=== PATIENT | female | born 1975 | race Caucasian/White ===

== ENCOUNTER 2022-05-03 16:54 | Inpatient (IN) | payer MEDICAID ==
[2022-05-03] MEDS ORDERED: Sodium Chloride 0.9% 1,000 ML IV ONE (17:53)
[2022-05-03] MEDS ORDERED: Insulin Regular, Human 100 Units/ML 3 ML Vial IVPUSH ONE (17:54)
[2022-05-03 18:28] LABS: ESTIMATED GFR > 60 (>60)
[2022-05-03] MEDS ORDERED: Ondansetron 4 MG/2 ML SDV IVPUSH ONE (18:35)
[2022-05-03] MEDS ORDERED: fentaNYL 50 MCG/ML SDV IVPUSH ONE (18:36)
[2022-05-03] MEDS: Sodium Chloride 0.9% 1,000 ML IV SCH ×2 (19:24→22:46)
[2022-05-03] MEDS ORDERED: Ondansetron 4 MG/2 ML SDV IV PRN (20:24)
[2022-05-03] MEDS ORDERED: Acetaminophen/HYDROcodone 325-5 MG Tab PO PRN (20:24)
[2022-05-03] MEDS ORDERED: 50% Dextrose in Water 50 ML Syringe IVPUSH PRN (20:24)
[2022-05-03] MEDS ORDERED: Acetaminophen 325 MG Tab PO PRN (20:24)
[2022-05-03] MEDS ORDERED: Magnesium Hydroxide 400 MG/5 ML Susp 30 ML Cup PO PRN (20:24)
[2022-05-03] MEDS ORDERED: Potassium Chloride Riders 20 MEQ in Premix Bag 1 BAG IV ONE ×2 (21:10→22:06)
[2022-05-03] MEDS ORDERED: Magnesium Sulfate/Water 50 ML IV PRN (21:10)
[2022-05-03 21:13] LABS: ESTIMATED GFR > 60 (>60)
[2022-05-03] MEDS ORDERED: Insulin Regular in 0.9 % NACL 100 ML IV SCH (21:15)
[2022-05-03] MEDS ORDERED: Sodium Chloride 0.9% 1,000 ML IV SCH (21:15)
[2022-05-03] MEDS: Nicotine 21 MG/24 Hr Patch TRDERM SCH (21:31)
[2022-05-03] MEDS: LORazepam 2 MG/ML SDV IVPUSH PRN (21:39)
[2022-05-03] MEDS ORDERED: Potassium Chloride Riders 100 ML ONE (22:12)
[2022-05-03] MEDS ORDERED: Lidocaine 1% 5 ML VIAL ONE (22:12)
[2022-05-04] MEDS: Dextrose 5%-0.45% NaCl 1,000 ML IV PRN ×2 (00:43→07:31)
[2022-05-04 00:55] LABS: ESTIMATED GFR > 60 (>60)
[2022-05-04] MEDS ORDERED: Potassium Chloride Riders 100 ML ONE (02:59)
[2022-05-04] MEDS: Potassium Chloride Riders 20 MEQ in Premix Bag 1 BAG IV PRN ×2 (03:09→21:54)
[2022-05-04 05:01] LABS: ESTIMATED GFR > 60 (>60)
[2022-05-04] MEDS: Pantoprazole 40 MG Tab.CR PO SCH (07:20)
[2022-05-04] MEDS ORDERED: LIDOCAINE 1% IV ONE (08:00)
[2022-05-04] MEDS ORDERED: SODIUM CHLORIDE 0.9% IV ONE (08:00)
[2022-05-04] MEDS ORDERED: POTASSIUM CHLORIDE RIDERS IV ONE (08:00)
[2022-05-04] MEDS: Nicotine 21 MG/24 Hr Patch TRDERM SCH (08:31)
[2022-05-04 08:55] LABS: ESTIMATED GFR > 60 (>60)
[2022-05-04] MEDS: Loratadine 10 MG Tab PO SCH (09:51)
[2022-05-04 10:56] LABS: HEMOGLOBIN A1C 13.4 % (4.5-6.2)
[2022-05-04 12:51] LABS: ESTIMATED GFR > 60 (>60)
[2022-05-04] MEDS: Sodium Chloride 0.9% 1,000 ML IV SCH ×2 (13:27→21:56)
[2022-05-04 16:40] LABS: ESTIMATED GFR > 60 (>60)
[2022-05-04] MEDS: Insulin Lispro 100 Unit/ML 3 ML KwikPen SUBCUT SCH (20:34)
[2022-05-04 21:06] LABS: ESTIMATED GFR > 60 (>60)
[2022-05-04] MEDS: LORazepam 2 MG/ML SDV IVPUSH PRN (21:12)
[2022-05-04] MEDS ORDERED: Lidocaine 1% 5 ML VIAL ONE (21:49)
[2022-05-04] MEDS ORDERED: Lidocaine 1% 5 ML VIAL INJECT PRN (21:50)
[2022-05-05 00:49] LABS: ESTIMATED GFR > 60 (>60)
[2022-05-05 05:51] LABS: ESTIMATED GFR > 60 (>60)
[2022-05-05] MEDS: Insulin Lispro 100 Unit/ML 3 ML KwikPen SUBCUT SCH ×4 (07:38→21:11)
[2022-05-05] MEDS: Pantoprazole 40 MG Tab.CR PO SCH (07:43)
[2022-05-05] MEDS: Glimepiride 2 MG Tab PO SCH ×2 (07:48→16:45)
[2022-05-05] MEDS ORDERED: metFORMIN 500 MG Tab PO SCH (08:00)
[2022-05-05] MEDS: Nicotine 21 MG/24 Hr Patch TRDERM SCH (09:48)
[2022-05-05] MEDS: Loratadine 10 MG Tab PO SCH (09:48)
[2022-05-05] MEDS: metFORMIN 500 MG Tab PO SCH (16:45)
[2022-05-05] MEDS: LORazepam 2 MG/ML SDV IVPUSH PRN (20:51)
[2022-05-06 06:32] LABS: ESTIMATED GFR > 60 (>60)
[2022-05-06] MEDS: Loratadine 10 MG Tab PO SCH (08:33)
[2022-05-06] MEDS: Glimepiride 2 MG Tab PO SCH (08:33)
[2022-05-06] MEDS: Pantoprazole 40 MG Tab.CR PO SCH (08:33)
[2022-05-06] MEDS: metFORMIN 500 MG Tab PO SCH (08:33)
[2022-05-06] MEDS: Nicotine 21 MG/24 Hr Patch TRDERM SCH (08:34)
[2022-05-06] MEDS: Insulin Lispro 100 Unit/ML 3 ML KwikPen SUBCUT SCH ×2 (08:34→12:00)
[2022-05-06] MEDS ORDERED: glipiZIDE 5 MG Tab.ER PO SCH (09:15)
[2022-05-06] MEDS ORDERED: 50% Dextrose in Water 50 ML Syringe IVPUSH PRN (11:41)
[2022-05-06] MEDS ORDERED: Glucagon,Human Recombinant 1 MG Vial IM PRN (11:41)
[2022-05-06] MEDS ORDERED: Insulin Glargine,Human Rec. Analog 100 Units/ML 3 ML Pen SUBCUT SCH (11:45)
== END 2022-05-06 16:25 | disposition home or self-care (01) | DRG 638 ==
LOC: JP.ED 16:54 → JP.ICU 20:01 → JP.ED 20:05
PROVIDERS: ADMIT Hospitalist; ATTEND Hospitalist
DX: E11.65 Type 2 diabetes mellitus with hyperglycemia (principal); E87.2 Acidosis; K59.00 Constipation, unspecified; F41.1 Generalized anxiety disorder; K21.9 Gastro-esophageal reflux disease without esophagitis; F32.A Depression, unspecified; F17.200 Nicotine dependence, unspecified, uncomplicated; Z90.710 Acquired absence of both cervix and uterus
CPT/HCPCS: 36415; 36600; 76700; 76700-26; 80048; 80053; 80061; 82009; 82803; 82947; 83036; 83690; 83735; 84100; 84132; 84484; 85025; 85027; 96361; 96374; 96375; 99222; 99231; 99232; 99239; 99284; 99285-25; A9270-GY; J1815; J1815-GY; J2001; J2060; J2405; J3010; J3475; J3480; J3490; J7030; J7042

== ENCOUNTER 2023-07-15 06:52 | Day surgery (SDC) | payer MEDICAID ==
[~2023-07-15 06:52] MED LIST: Midazolam 1 MG/ML 2 ML SDV ONE; Propofol 200 MG/20 ML SDV ONE; fentaNYL 50 MCG/ML SDV ONE
[2023-07-15] MEDS ORDERED: Lactated Ringers 1,000 ML IV SCH (07:30)
== END 2023-07-15 10:13 | disposition home or self-care (01) ==
LOC: JP.SDS 06:52
PROVIDERS: ATTEND Student in an Organized Health Care Education/Training Program
DX: Z12.11 Encounter for screening for malignant neoplasm of colon (principal); K57.30 Diverticulosis of large intestine without perforation or abscess without bleeding; F41.9 Anxiety disorder, unspecified; F32.A Depression, unspecified; E11.9 Type 2 diabetes mellitus without complications; F17.200 Nicotine dependence, unspecified, uncomplicated
CPT/HCPCS: 45378; 93005; J2250; J2704; J3010; J7120